=== PATIENT | male | born 1970 | race African-American/Black ===

== ENCOUNTER 2020-04-11 07:03 | Emergency (ER) | payer OTHER ==
[~2020-04-11] VITALS: Ht 172.7 cm; Wt 75.3 kg
[~2020-04-11 07:03] MED LIST: ALLEGRA ALLERG180 MG PO; GILTUSS TR TAB1 EACH PO; TESSALON PERLE100 MG PO
== END 2020-04-11 11:01 | disposition home or self-care (01) ==
LOC: ER 07:03
DX: F43.8 Other reactions to severe stress (principal)

== ENCOUNTER 2021-07-23 09:50 | Outpatient (CLI) | payer OTHER | END 2021-07-23 09:54 | disposition home or self-care (01) | LOC: TOM 09:50 | PROVIDERS: ATTEND Internal Medicine Cardiovascular Disease | DX: I83.009 Varicose veins of unspecified lower extremity with ulcer of unspecified site (principal); M12.88 Other specific arthropathies, not elsewhere classified, other specified site ==

== ENCOUNTER → 2022-07-29 | Outpatient (CLI) | payer OTHER | END | disposition home or self-care (01) | LOC: RAD 09:26 | PROVIDERS: ATTEND Internal Medicine Cardiovascular Disease | DX: M12.9 Arthropathy, unspecified (principal) ==

== ENCOUNTER 2024-05-12 11:15 | Emergency (ER) | payer OTHER ==
[~2024-05-12] VITALS: Ht 172.7 cm; Wt 72.6 kg
[2024-05-12] MEDS ORDERED: COZAAR25 MG PO (11:34)
[2024-05-12] MEDS ORDERED: LACTOBACILLUS ACIDOPHILUS 1 CAP CAP PO STA (12:53)
[2024-05-12 13:12] LABS: HEMATOCRIT 42.3 % (39.0-48.0); HEMOGLOBIN 14.3 g/dL (13-16.00); MEAN CELL VOLUME 85.2 fL (80.0-100.00); MEAN CORPUSCULAR HEMOGLOBIN 28.8 pg (27.00-32.0); MEAN CORPUSCULAR HGB CONC 33.8 g/dl (32.0-36.0); PLATELET COUNT 233 K/uL (150-450); RED BLOOD COUNT 4.97 M/uL (4.00-6.00); RED CELL DISTRIBUTION WIDTH 13.2 % (11.5-14.5)
[2024-05-12 15:27] LABS: CALCIUM 9.5 mg/dL (8.5-10.1); CREATININE SERUM 0.98 mg/dL (0.70-1.30); GFR 79.41; POTASSIUM 3.91 mEq/L (3.5-5.1)
== END 2024-05-12 15:51 | disposition home or self-care (01) ==
LOC: ER 11:17
PROVIDERS: General Practice
DX: M54.89 Other dorsalgia (principal)